=== PATIENT | female | born 1970 | race American Indian/Alaskan Native ===

== ENCOUNTER 2016-10-04 00:23 | Emergency (ER) | payer OTHER ==
[2016-10-04] MEDS ORDERED: MOTRIN ONE (01:06)
[2016-10-04] MEDS ORDERED: MOTRIN PO ONE (01:48)
[2016-10-04 01:50] VITALS: BP 115/78
[2016-10-04] MEDS ORDERED: TORADOL IM ONE (04:02)
[2016-10-04] MEDS ORDERED: FLEXERIL PO ONE (04:02)
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
== END 2016-10-04 04:05 | disposition home or self-care (01) ==
LOC: ED 00:23
DX: M79.1 Myalgia (principal); V49.49XA Driver injured in collision with other motor vehicles in traffic accident, initial encounter; Y93.89 Activity, other specified; Y99.8 Other external cause status; Y92.89 Other specified places as the place of occurrence of the external cause
CPT/HCPCS: 96372; 99282; J1885